=== PATIENT | male | born 1935 | race Caucasian/White ===

== ENCOUNTER 2020-10-24 12:39 | Inpatient (IN) | payer OTHER ==
[~2020-10-24] VITALS: Ht 180.3 cm; Wt 73.2 kg
--- NOTE | ~2020-10-24 | CON ---
[address] [address] CONSULTATION Name: KIMBERLI HENDRICKS Room: [address] IN M.R.#: [id number] Admission: 10/24/20 Attend Phys: Arben Shelley Discharge: Date of : 33 Report #: [id number] THIS REPORT FOR: cc: Renetta Tomas Barbara J APNP ~ Ej Lindsay MD DATE OF SERVICE: 10/25/2020 REQUESTING PHYSICIAN: Harshad Raymundo DO REASON FOR CONSULTATION: Abnormal renal function. HISTORY OF PRESENT ILLNESS: The patient is a very pleasant 85-year-old gentleman with medical history significant for possible chronic kidney disease, hypertension, dyslipidemia, diabetes mellitus type 2, presents with syncopal episode. He was feeling weak and shaky for several days prior to admission, blood pressure was 100/68 on admission. Labs were reviewed. His creatinine was 1.8, I do not know a baseline. His hemoglobin 17.3, which is suggestive of volume depletion. COVID-19 was negative. Chest x-ray had some diffuse interstitial pulmonary infiltrate with left basilar consolidation. Unclear to me the reason for that. PHYSICAL EXAMINATION: GENERAL: He is awake, but somnolent. VITAL SIGNS: Blood pressure 127/90, heart rate 64, afebrile. HEENT: Pupils are round. NECK: Supple. LUNGS: Decreased air movements. CARDIOVASCULAR: Regular rate. ABDOMEN: Soft. ASSESSMENT AND PLAN: 1. Syncopal episode with low blood pressure can be volume depleted. 2. Most likely he has chronic kidney disease. 3. Changes in the lungs. I am not sure what is causing that. He is COVID negative, but certainly could be false negative, maybe was to repeat that. 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 So nothing to add right now. I will be on standby. We will check again on Wednesday. Discussed with Dr. Raymundo. By: 1205 [id number] Lindsay MD /SUREKHA
[~2020-10-24 12:39] MED LIST: ASPIR-LOW81 MG PO; CALCIUM CARBON600 MG PO; METFORMIN HCL500 MG PO; NORVASC10 MG PO; SIMVASTATIN40 MG PO; ZESTRIL20 MG PO
[2020-10-24 12:45] VITALS: BP 101/68
[2020-10-24 13:01] LABS: ABSOLUTE MONOCYTES 0.6 thou/uL (0.0-1.2); ABSOLUTE NEUTROPHILS 4.2 thou/uL (1.6-8.1); BASOPHILS 0.4 %; EOSINOPHILS 0.3 %; HEMATOCRIT 52.9 % (42.0-52.0); HEMOGLOBIN 17.3 gm/dL (14.0-18.0); LYMPHOCYTES 17.3 %; MCH 31.8 pg (26.0-34.0); MCHC 32.8 g/dL (28.0-37.0); MCV 97.1 fL (80.0-100.0); MONOCYTES 10.4 %; MPV 9.1 fl. (7.2-11.1); NUCLEATED RBCS 0 /100WBC; PLATELET COUNT* 146 thou/uL (150-400); POLYS 71.6 %; RBC 5.45 mil/uL (4.50-6.00); RDW-CV 16.1 % (10.5-14.5); WBC 5.8 thou/uL (4.0-11.0)
[2020-10-24 13:17] LABS: CREATININE 1.8 mg/dL (0.6-1.3); POTASSIUM 4.4 mmol/L (3.5-5.1)
[2020-10-24 13:22] LABS: ALBUMIN 3.3 g/dL (3.4-5.0); TOTAL BILIRUBIN 2.5 mg/dL (<0.1-1.0); TOTAL PROTEIN 6.8 g/dL (6.4-8.2)
[2020-10-24 13:26] LABS: PLATELET ESTIMATE DECREASED
[2020-10-24 13:27] LABS: GIANT PLATELETS OCCASIONAL; LARGE PLATELETS FEW
[2020-10-24 13:28] LABS: TARGET CELLS 1+
[2020-10-24 16:06] VITALS: BP 109/81
--- NOTE | 2020-10-24 16:29 | EKG ---
[place] [address] ELECTROCARDIOGRAM REPORT Name: AMELIA HENDRICKSALD Rashard Room: [place] [address] ADM IN R.#: [id number] Admission: 10/24/20 Attend Phys: Harshad Raymundo Discharge: Date of : 33 Date of Service: 10/24/20 1248 Report #: [id number] THIS REPORT FOR: //name// [facility] ED Test Date: 2020-10-24 Test Time: 12:48:05 Pat Name: KIMBERLI HENDRICKS Department: Room: [facility] Gender: M Director Of In Service Education: SAVANNAH : 1935 Requested By: oJse Menjivar Order Number: [id number] MD: Eliezer Marvin Measurements Intervals [place] Rate: 80 P: 41 IL: 177 QRS: 161 QRSD: 157 T: -15 QT: 440 QTc: 508 Interpretive Statements Sinus rhythm Probable left atrial enlargement Nonspecific intraventricular conduction delay Anterolateral infarct, recent No previous ECG available for comparison Electronically Signed On 10-24-2020 16:28:57 HEARING [employer]ID [employer]TER by Eliezer Marvin [email or web address] <ELECTRONICALLY SIGNED> By: Eliezer Marvin MD, FACC 10/24/20 1628 1248 1248 Eliezer Marvin MD, FACC /EPI
[2020-10-24 17:08] VITALS: BP 111/80
[2020-10-24 21:09] VITALS: BP 127/82
[2020-10-24 23:49] VITALS: BP 114/86
[2020-10-25 04:00] VITALS: BP 106/75
[2020-10-25 08:00] VITALS: BP 127/92
[2020-10-25 12:51] VITALS: BP 123/93
[2020-10-25 16:44] VITALS: BP 125/62
[2020-10-25 20:30] VITALS: BP 86/65
[2020-10-25 23:54] VITALS: BP 97/71
[2020-10-26 03:55] LABS: ALBUMIN 2.9 g/dL (3.4-5.0); CALCIUM 8.7 mg/dL (8.5-10.1); CREATININE 1.7 mg/dL (0.6-1.3); POTASSIUM 4.9 mmol/L (3.5-5.1); TOTAL BILIRUBIN 2.2 mg/dL (<0.1-1.0); TOTAL PROTEIN 6.1 g/dL (6.4-8.2)
[2020-10-26 03:57] LABS: ABSOLUTE EOSINOPHILS 0.1 thou/uL (0.0-0.7); ABSOLUTE MONOCYTES 0.7 thou/uL (0.0-1.2); ABSOLUTE NEUTROPHILS 3.1 thou/uL (1.6-8.1); BASOPHILS 0.4 %; HEMATOCRIT 50.2 % (42.0-52.0); HEMOGLOBIN 16.4 gm/dL (14.0-18.0); LYMPHOCYTES 33.7 %; MCH 31.2 pg (26.0-34.0); MCHC 32.7 g/dL (28.0-37.0); MCV 95.4 fL (80.0-100.0); MONOCYTES 12.1 %; MPV 9.3 fl. (7.2-11.1); NUCLEATED RBCS 0 /100WBC; POLYS 52.8 %; RBC 5.27 mil/uL (4.50-6.00); RDW-CV 15.5 % (10.5-14.5); WBC 5.8 thou/uL (4.0-11.0)
[2020-10-26 04:00] VITALS: BP 115/85
[2020-10-26 05:48] LABS: PLATELET ESTIMATE DECREASED
[2020-10-26 05:49] LABS: LARGE PLATELETS OCCASIONAL
[2020-10-26 05:50] LABS: ANISOCYTOSIS 1+
[2020-10-26 05:51] LABS: PLATELET COUNT* 133 thou/uL (150-400)
[2020-10-26] MEDS ORDERED: ASPIRIN325 PO (07:36)
[2020-10-26 08:00] VITALS: BP 103/82
[2020-10-26 12:39] VITALS: BP 106/74
[2020-10-26 16:15] VITALS: BP 109/36
[2020-10-26 20:00] VITALS: BP 101/76
[2020-10-27 00:36] VITALS: BP 93/68
[2020-10-27 04:44] VITALS: BP 121/83
[2020-10-27 08:00] VITALS: BP 132/97
[2020-10-27 12:46] VITALS: BP 116/59
[2020-10-27 16:32] VITALS: BP 98/66
[2020-10-27 20:30] VITALS: BP 99/74
[2020-10-28 00:19] VITALS: BP 114/84
[2020-10-28 04:33] VITALS: BP 116/83
[2020-10-28 05:27] LABS: CREATININE 1.8 mg/dL (0.6-1.3); POTASSIUM 4.5 mmol/L (3.5-5.1)
[2020-10-28 08:00] VITALS: BP 98/73
--- NOTE | 2020-10-28 08:42 | CON ---
[facility] [address] [place] [address] CONSULTATION Name: KIMBERLI HENDRICKS Room: [address] IN M.R.#: [id number] Admission: 10/24/20 Attend Phys: Arben Shelley Discharge: Date of : 33 Report #: [id number] THIS REPORT FOR: cc: Renetta Tomas Barbara J APNP ~ Eliezer Marvin MD [facility] INDICATION: Elevated troponin and syncope. HISTORY OF PRESENT ILLNESS: The patient is an 85-year-old gentleman who is a fairly poor historian. He was found down at his apartment complex and was apparently out for several minutes after passing out. He was resuscitated by EMS and brought to the hospital for further evaluation. The patient does not recall a significant amount of symptoms prior to passing out. He had a similar episode back in May. At that time, he was hospitalized and went to rehabilitation for a month. There is no documented history of coronary artery disease. The patient does have a dual-chamber pacemaker in place. Interrogation today shows no arrhythmias and normal functioning of his pacemaker. The patient's troponin is mildly elevated. Chest x-ray suggests infiltrate versus edema. His NT-proBNP is elevated consistent with heart failure. He does have dyspnea on exertion that has been progressive for the last 3 days. He has lower extremity edema. He denies shortness of breath at rest. He is not having any chest pain. He is without other cardiac complaint at this time. PAST MEDICAL HISTORY: 1. Hypertension. 2. Dyslipidemia. 3. Type 2 diabetes mellitus. 4. Status post pacemaker placement with generator change in 2017 [employer]. 5. Tonsillectomy. 6. Hernia surgery. 7. Traumatic amputation of middle fingers. HOME MEDICATIONS: Lisinopril, amlodipine, simvastatin, and metformin. ALLERGIES: None documented. SOCIAL HISTORY: The patient does not smoke. He does not drink alcohol. FAMILY HISTORY: Noncontributory. PHYSICAL EXAMINATION: VITAL SIGNS: Blood pressure 123/93, pulse is 71 and regular. GENERAL: This is an elderly gentleman who does not appear to be in distress. HEENT: Head is normocephalic, atraumatic. [place] [address] CONSULTATION Name: KIMBERLI HENDRICKS Room: [address] IN [facility]#: [id number] Admission: 10/24/20 Attend Phys: Arben Shelley Discharge: Date of : 33 Report #: [id number] membranes moist. NECK: Shows no jugular venous distention. I do not appreciate bruit. CHEST: Reveals diminished breath sounds with coarse breath sounds over the mid lung redding. I do not appreciate wheezes or rales. CARDIOVASCULAR: Reveals a regular rhythm with a very soft 1/6 systolic ejection murmur. I do not appreciate gallop. ABDOMEN: Reveals normal bowel sounds. The abdomen is soft, nontender. EXTREMITIES: Shows 1+ edema to the mid tibias bilaterally. SKIN: Dry. RADIOLOGICAL DATA: A 12-lead EKG shows AV sequential pacing. LABORATORY DATA: Reviewed. Sodium 139, potassium 4.4, chloride 106, bicarbonate 25, BUN 37, creatinine 1.8, serum glucose 112. Troponins are 0.11 0.17, 0.37 and 0.29 sequentially. NT-proBNP is 14,261. Chest x-ray shows diffuse interstitial pulmonary infiltrates, which could possibly be edema. Moderate sized left effusion. IMPRESSION AND RECOMMENDATIONS: 1. Elevated troponin, likely due to cardiac strain. The patient is not having symptoms to suggest acute coronary syndrome. No specific treatment at this time. 2. Acute on chronic heart failure. Echocardiogram has been ordered and is pending. We will give bolus of IV Lasix today and follow labs in a.m. 3. Hypertension. Blood pressure low normal presently. 4. History of dyslipidemia. Continue atorvastatin at current dose. 5. Diabetes per hospitalist. <ELECTRONICALLY SIGNED> By: Eliezer Marvin MD, FACC 10/28/20 0842 1319 [id number] Marvin MD, FACC /nt
[2020-10-28 12:00] VITALS: BP 97/73
[2020-10-28 16:00] VITALS: BP 100/69
--- NOTE | 2020-10-28 16:20 | 2DMMODE ---
[place] [address] 2 D/M-MODE ECHOCARDIOGRAM Name: RUTHIEKIMBERLI Rashard Room: [address] IN [facility]#: [id number] Admission: 10/24/20 Attend Phys: Harshad Raymundo Discharge: Date of : 33 Date of Service: 10/28/20 1620 Report #: [id number] THIS REPORT FOR: cc: Renetta Tomas Barbara J APNP Liston, Michael J. MD [facility] ~ APPROVED REPORT Study performed: 10/28/2020 14:19:44 EXAM: Comprehensive 2D, Doppler, and color-flow Echocardiogram Patient Location: In-Patient Room #: [facility] Status: routine BSA: 1.96 HR: 71 bpm BP: 116/83 mmHg Rhythm: NSR Other Information Study Quality: Good Indications Murmur Syncope Elevated Troponin 2D Dimensions IVSd: 11.58 (7-11mm) LVOT Diam: 22.23 (18-24mm) LVDd: 27.91 mm PWd: 9.20 (7-11mm) Ascending Ao: 35.72 (22-36mm) LVDs: 21.34 (25-40mm) Aortic Root: 38.67 mm Volumes Left Atrial Volume (Systole) LA ESV Index: 12.00 mL/m2 Aortic Valve AoV Peak Quincy.: 0.97 m/s AO Peak Gr.: 3.76 mmHg LVOT Max P.10 mmHg AO Mean Gr.: 2.34 mmHg LVOT Mean P.68 mmHg LVOT Max V: 0.53 m/s AO V2 VTI: 14.37 cm LVOT Mean V: 0.40 m/[place] [address] 2 D/M-MODE ECHOCARDIOGRAM Name: KIMBERLI HENDRICKS Room: [address] IN .R.#: [id number] Admission: 10/24/20 Attend Phys: Harshad Raymundo Discharge: Date of : 33 Date of Service: 10/28/20 1620 Report #: [id number] ROBERTA (VTI): 2.26 cm2 LVOT V1 VTI: 8.37 cm Mitral Valve E/A Ratio: 0.55 MV Decel. Time: 215.05 ms MV E Max Quincy.: 0.26 m/s MV PHT: 62.37 ms MVA (PHT): 3.53 cm2 TDI E/Lateral E': 5.20 E/Medial E': 4.33 Medial E' Quincy.: 0.06 m/s Lateral E' Quincy.: 0.05 m/s Pulmonary Valve PV Peak Quincy.: 0.78 m/s PV Peak Gr.: 2.45 mmHg Tricuspid Valve RAP Estimate: 15.00 mmHg TR Peak Gr.: 54.26 mmHg RVSP: 69.00 mmHg PA Pressure: 69.00 mmHg Left Ventricle The left ventricle is normal size. There is left ventricular systolic dysynergy consistent with paced rhythm. There is normal left ventricular wall thickness. Left ventricular systolic function is normal. LVEF is 50-55%. Grade I - abnormal relaxation pattern. Right Ventricle Right ventricle is severely dilated. Right ventricle is moderately hypokinetic. Pacemaker lead is present in the right ventricle. Atria The left atrium size is normal. Right atrium is severely dilated. Aortic Valve Mild aortic valve sclerosis. Trace aortic regurgitation. There is no aortic valvular stenosis. Mitral Valve The mitral valve is normal in structure. Trace mitral regurgitation. No evidence of mitral valve stenosis. Tricuspid Valve The tricuspid valve is normal in structure[place] [address] 2 D/M-MODE ECHOCARDIOGRAM Name: KIMBERLI HENDRICKS Room: [address] IN [facility]#: [id number] Admission: 10/24/20 Attend Phys: Harshad Raymundo Discharge: Date of : 33 Date of Service: 10/28/20 1620 Report #: [id number] regurgitation. Severe pulmonary hypertension. The RVSP is estimated to be75-80 mmHg. Pulmonic Valve The pulmonary valve is normal in structure. Mild pulmonic regurgitation. Great Vessels The aortic root is normal in size. IVC is dilated and collapses <50% with inspiration. Pericardium There is no pericardial effusion. <Conclusion> The left ventricle is normal size. There is normal left ventricular wall thickness. Left ventricular systolic function is normal. LVEF is 50-55%. Grade I - abnormal relaxation pattern. There is left ventricular systolic dysynergy consistent with paced rhythm. Right ventricle is severely dilated. Right ventricle is moderately hypokinetic. Right atrium is severely dilated. Mild aortic valve sclerosis. Trace mitral regurgitation. Mild tricuspid regurgitation. Severe pulmonary hypertension. The RVSP is estimated to be75-80 mmHg. IVC is dilated and collapses <50% with inspiration. <ELECTRONICALLY SIGNED> By: Eliezer Marvin MD, FACC 10/28/20 162 19 19 Eliezer Marvin MD, FACC /INF
[2020-10-28 20:00] VITALS: BP 91/67
[2020-10-29] VITALS: BP 103/72
[2020-10-29 04:00] VITALS: BP 102/80
[2020-10-29 06:04] LABS: HEMATOCRIT 53.7 % (42.0-52.0); HEMOGLOBIN 17.8 gm/dL (14.0-18.0); MCH 31.5 pg (26.0-34.0); MCV 95.3 fL (80.0-100.0); MPV 9.3 fl. (7.2-11.1); RBC 5.64 mil/uL (4.50-6.00); RDW-CV 15.5 % (10.5-14.5)
[2020-10-29 06:15] LABS: CALCIUM 8.9 mg/dL (8.5-10.1); CREATININE 1.8 mg/dL (0.6-1.3); POTASSIUM 4.1 mmol/L (3.5-5.1)
[2020-10-29 08:00] VITALS: BP 128/91
[2020-10-29 12:00] VITALS: BP 132/89
[2020-10-29 16:00] VITALS: BP 107/74
[2020-10-29 22:30] VITALS: BP 99/65
[2020-10-30] VITALS (7 sets, daily range): BP systolic 83–130; BP diastolic 56–92
[2020-10-30 03:56] LABS: HEMATOCRIT 56.4 % (42.0-52.0); HEMOGLOBIN 18.4 gm/dL (14.0-18.0); MCH 31.4 pg (26.0-34.0); MCHC 32.7 g/dL (28.0-37.0); MCV 96.1 fL (80.0-100.0); MPV 9.8 fl. (7.2-11.1); RBC 5.87 mil/uL (4.50-6.00); RDW-CV 15.7 % (10.5-14.5); WBC 5.4 thou/uL (4.0-11.0)
[2020-10-30 05:44] LABS: CALCIUM 8.4 mg/dL (8.5-10.1); CREATININE 1.6 mg/dL (0.6-1.3)
[2020-10-31] VITALS: BP 106/72
[2020-10-31 04:00] VITALS: BP 90/56
[2020-10-31 04:37] LABS: CALCIUM 8.2 mg/dL (8.5-10.1); CREATININE 1.4 mg/dL (0.6-1.3); POTASSIUM 4.1 mmol/L (3.5-5.1)
[2020-10-31 08:00] VITALS: BP 92/67
[2020-10-31 11:50] VITALS: BP 80/55
[2020-10-31 20:00] VITALS: BP 88/60
[2020-10-31 23:39] VITALS: BP 89/63
[2020-11-01 04:59] VITALS: BP 93/66
[2020-11-01 12:00] VITALS: BP 101/76
[2020-11-01 20:00] VITALS: BP 83/58
[2020-11-02] VITALS: BP 87/63
[2020-11-02 04:00] VITALS: BP 96/71
[2020-11-02 12:00] VITALS: BP 88/55
[2020-11-02 20:00] VITALS: BP 108/79
[2020-11-03 00:34] VITALS: BP 111/80
[2020-11-03 04:28] VITALS: BP 114/78
[2020-11-03 04:52] LABS: HEMATOCRIT 53.4 % (42.0-52.0); HEMOGLOBIN 17.4 gm/dL (14.0-18.0); MCH 31.3 pg (26.0-34.0); MCHC 32.5 g/dL (28.0-37.0); MCV 96.2 fL (80.0-100.0); MPV 9.8 fl. (7.2-11.1); RBC 5.55 mil/uL (4.50-6.00); RDW-CV 15.5 % (10.5-14.5); WBC 2.7 thou/uL (4.0-11.0)
[2020-11-03 05:20] LABS: ALBUMIN 2.4 g/dL (3.4-5.0); CALCIUM 8.1 mg/dL (8.5-10.1); CREATININE 1.5 mg/dL (0.6-1.3); POTASSIUM 4.1 mmol/L (3.5-5.1); TOTAL PROTEIN 5.7 g/dL (6.4-8.2)
[2020-11-03 08:00] VITALS: BP 107/78
[2020-11-03 12:00] VITALS: BP 100/71
[2020-11-03 20:30] VITALS: BP 90/61
[2020-11-04] VITALS: BP 86/61
[2020-11-04 04:45] VITALS: BP 83/57
[2020-11-04 04:58] LABS: HEMATOCRIT 54.5 % (42.0-52.0); HEMOGLOBIN 18.1 gm/dL (14.0-18.0); MCH 31.7 pg (26.0-34.0); MCHC 33.3 g/dL (28.0-37.0); MCV 95.1 fL (80.0-100.0); MPV 10.3 fl. (7.2-11.1); RBC 5.73 mil/uL (4.50-6.00); RDW-CV 15.4 % (10.5-14.5); WBC 6.8 thou/uL (4.0-11.0)
[2020-11-04 05:19] LABS: ALBUMIN 2.3 g/dL (3.4-5.0); CALCIUM 8.2 mg/dL (8.5-10.1); CREATININE 1.3 mg/dL (0.6-1.3); MAGNESIUM 2.4 mg/dL (1.8-2.4); TOTAL BILIRUBIN 0.8 mg/dL (<0.1-1.0); TOTAL PROTEIN 5.4 g/dL (6.4-8.2)
[2020-11-04 08:00] VITALS: BP 92/68
[2020-11-04 10:25] LABS: BE 3.3 mmol/L (-2 to +3); PCO2 42.5 mmHg (35.0-45.0); pH 7.437 (7.340-7.450)
[2020-11-04 10:27] LABS: PO2 54.4 mmHg (75.0-100.0)
[2020-11-04 12:00] VITALS: BP 88/53
[2020-11-04 16:00] VITALS: BP 96/67
[2020-11-04 17:35] VITALS: BP 97/67
[2020-11-05 00:39] VITALS: BP 94/68
[2020-11-05 03:48] VITALS: BP 110/69; BP 90/67
[2020-11-05 05:30] LABS: HEMATOCRIT 57.6 % (42.0-52.0); HEMOGLOBIN 18.9 gm/dL (14.0-18.0); MCHC 32.7 g/dL (28.0-37.0); MCV 94.8 fL (80.0-100.0); MPV 10.6 fl. (7.2-11.1); RBC 6.08 mil/uL (4.50-6.00); RDW-CV 15.4 % (10.5-14.5); WBC 7.2 thou/uL (4.0-11.0)
[2020-11-05 05:48] LABS: ALBUMIN 2.6 g/dL (3.4-5.0); CALCIUM 8.5 mg/dL (8.5-10.1); CREATININE 1.7 mg/dL (0.6-1.3); MAGNESIUM 2.3 mg/dL (1.8-2.4); POTASSIUM 4.6 mmol/L (3.5-5.1); TOTAL PROTEIN 5.9 g/dL (6.4-8.2)
[2020-11-05 05:55] VITALS: BP 90/67
[2020-11-05 12:24] VITALS: BP 124/75
[2020-11-05 15:39] LABS: APTT 37.3 Seconds (25.0-31.3); INR 1.2; PROTIME 12.5 Seconds (9.20-11.50)
[2020-11-05 17:25] VITALS: BP 97/63; BP 99/71
--- NOTE | 2020-11-05 19:46 | CON ---
[address] [address] CONSULTATION Name: KIMBERLI HENDRICKS Room: [address] IN M.R.#: [id number] Admission: 10/24/20 Attend Phys: Arben Shelley Discharge: Date of : 34 Report #: [id number] THIS REPORT FOR: cc: Renetta Tomas Barbara J APNP ~ Celso Ulloa MD DATE OF SERVICE: 11/04/2020 REQUESTING PHYSICIAN: Consult has been requested by Dr. Pyle. INDICATION FOR CONSULTATION: Acute hypoxemic respiratory failure. HISTORY OF PRESENT ILLNESS: This is an 85-year-old gentleman with past medical history as mentioned below. We do not have previous records available. The patient does use oxygen at home. It appears likely to me that he does have COPD, although I do not see this documented on the records. The patient is now admitted towards the end of September. Presentation was with a syncopal episode. The patient since then has also had an elevation in creatinine and he has had shortness of breath as well and was seen by the Nephrology service earlier. The patient's renal function has now improved; however, his respiratory status has been worsening. Initial COVID screen was negative. The patient did have a repeat COVID test performed a couple of days ago, which did come back positive. The patient has become progressively more hypoxemic. Currently, he is on a BiPAP of 16/8 with 100% FiO2 and O2 saturation is in the low 90s. The patient's blood pressure is maintained; however, is on the lower side. At this time, he does not have significant swelling of lower extremities. He is however is described as having swelling of lower extremities on initial presentation. REVIEW OF SYSTEMS: The patient's review of systems as obtained from the patient is negative for 12 points except as mentioned above; however, the patient is on BiPAP and is short of breath and he has limited ability to answer questions adequately. PAST MEDICAL HISTORY: Hypertension, hyperlipidemia, diabetes, status post pacemaker placement, tonsillectomy, hernia surgery and traumatic amputation of middle fingers. The patient's current creatinine is 1.3, I do not have a previous comparison available. It is possible that he has mild renal insufficiency shelter as well. There is a recent echocardiogram, which shows a left ventricular ejection fraction of 50-55% with very severe pulmonary hypertension, the pulmonary artery systolic of 75-80. SOCIAL HISTORY: He has an extensive history of smoking more than [place] [address] CONSULTATION Name: KIMBERLI HENDRICKS Room: [address] IN [facility]#: [id number] Admission: 10/24/20 Attend Phys: Arben Shelley Discharge: Date of : 34 Report #: [id number] for at least 2 decades, he is described as having now discontinued, I am not able to quantify exactly at this time. Occasional alcohol use. No known history of illegal drug use. CURRENT MEDICATIONS: List in [facility], reviewed. HOME MEDICATIONS: List also in [facility], reviewed. FAMILY HISTORY: There is no pertinent family history noted at this time. PHYSICAL EXAMINATION: GENERAL: The patient appeared to have significant shortness of breath at rest. VITAL SIGNS: He was on BiPAP of 15/8. He was saturating 93-94%, respiratory rate was 24, blood pressure 97/67 and he is afebrile with a temperature of 36.7. HEENT: Head is normocephalic and atraumatic. There is a BiPAP mask in place. NECK: Does show some prominent veins, likely the patient has raised JVP. There is no asymmetry, mass or lymph nodes. CHEST: Symmetrical expansion on inspection and palpation. On auscultation, breath sounds are bilaterally equal, decreased, expirations are prolonged. I do hear scattered expiratory wheezes as well. HEART: Regular. There is no murmur. ABDOMEN: Soft and nontender. EXTREMITIES: Lower extremities show minimal edema only. There is no calf tenderness. SKIN: Dry and intact. NEUROLOGICAL: Moves all extremities bilaterally equally and spontaneously with no focal deficit identified. LABORATORY DATA: The patient's CTA chest performed on the 4th of this month is reviewed. There are pleural effusions consistent with fluid overload. There is a left lower lobe infiltrate. There are smaller infiltrates elsewhere as well. The patient's lab work including arterial blood gases in [facility] reviewed. ASSESSMENT AND PLAN: 1. Acute hypoxemic respiratory failure. Information regarding previous use of oxygen is limited; however, it appears to me that the patient is on oxygen at home as well. We will ask the patient when his shortness of breath is better. Meanwhile, the patient right now needs to be on the BiPAP. If his respiratory status improves, then he could be taken off and placed on a heated high-flow while awake. Keep him on BiPAP while asleep. For now ,continued current settings. I feel that we should have a more secure access in the form of a PICC line and I requested the same as well. 2. COVID-19. See discussion regarding steroids as below. The patient is on remdesivir and I agree with the same. He is also ordered one unit of [facility] [address] [place] [address] CONSULTATION Name: KIMBERLI HENDRICKS Room: [address] IN .#: [id number] Admission: 10/24/20 Attend Phys: Arben Shelley Discharge: Date of : 33 Report #: [id number] convalescent plasma and I agree with the same as well. We will plan to give him another unit of convalescent plasma tomorrow. 3. Bronchospasm/suspected acute exacerbation of chronic obstructive pulmonary disease. The patient is actively bronchospastic. It appears likely to me that he has a previous history of chronic obstructive pulmonary disease, regardless at this time I feel that he needs a significantly higher dose of steroid and I went ahead and ordered the same. We will continue with nebulized bronchodilators as currently prescribed. 4. Pulmonary infiltrates/pneumonia. There is a significant sized infiltrate in the left lower lobe, which appears to be lobar on the CT of the chest performed on the . There are other infiltrates as well. I would treat with broad-spectrum antibiotics and the same are ordered. Cultures and serologies are also ordered. 5. Severe pulmonary hypertension, pulmonary artery systolic 75-80. I feel that the patient would potentially benefit from higher dose of Lovenox both because of severe pulmonary hypertension as well as COVID-19, even though he is high risk for anticoagulation due to low platelets. I did order a chest ultrasound to evaluate if a significant pleural effusion is present on the left side and therefore I did not increase the Lovenox dose today, I will be inclined to increase it tomorrow. 6. Pleural effusions as above. I ordered a chest ultrasound; however, he is high risk for performing thoracentesis, so I only intent to proceed with thoracentesis if a large pleural effusion is seen. 7. Acute renal failure. It is possible there is a component of chronic renal insufficiency as well. Follow creatinine. I feel that we should run him on the dry side though 20 of Lasix now since his blood pressure is on the lower side. I will plan to give him more Lasix if his creatinine and blood pressure hold. I did not order the midodrine because he has severe pulmonary hypertension. Potentially, albumin could be given if needed to maintain blood pressure. 8. Thrombocytopenia, etiology is not fully defined at this time. The patient has only recently been started on Lovenox, DVT needs to be ruled out. I did order venous Dopplers. There was no pulmonary emboli on the CTA chest as above. My inclination is to increase the dose of Lovenox tomorrow. If we do not, proceed with thoracentesis. The patient is critically ill at this time. Total time spent providing critical care to this patient today exceeds 41 minutes. <ELECTRONICALLY SIGNED> By: Celso Ulloa MD 11/05/201945 15 Akaela Ulloa MD /nt
[2020-11-05 20:15] VITALS: BP 90/61
[2020-11-06] VITALS (7 sets, daily range): BP systolic 84–108; BP diastolic 54–76
[2020-11-06 07:28] LABS: HEMATOCRIT 55.9 % (42.0-52.0); HEMOGLOBIN 18.4 gm/dL (14.0-18.0); MCH 31.1 pg (26.0-34.0); MCHC 32.9 g/dL (28.0-37.0); MCV 94.3 fL (80.0-100.0); MPV 10.8 fl. (7.2-11.1); NUCLEATED RBCS 0 /100WBC; PLATELET COUNT* 86 thou/uL (150-400); RBC 5.92 mil/uL (4.50-6.00); RDW-CV 15.1 % (10.5-14.5); WBC 10.3 thou/uL (4.0-11.0)
[2020-11-06 07:38] LABS: ALBUMIN 2.7 g/dL (3.4-5.0); CALCIUM 8.1 mg/dL (8.5-10.1); CREATININE 1.6 mg/dL (0.6-1.3); MAGNESIUM 2.1 mg/dL (1.8-2.4); PHOSPHORUS* 3.1 mg/dL (2.5-4.9); POTASSIUM 3.9 mmol/L (3.5-5.1); TOTAL BILIRUBIN 1.3 mg/dL (<0.1-1.0); TOTAL PROTEIN 5.9 g/dL (6.4-8.2)
[2020-11-06 08:43] LABS: ABSOLUTE EOSINOPHILS 0.1 thou/uL (0.0-0.7); ABSOLUTE LYMPHOCYTES 0.2 thou/uL (0.8-5.3); ABSOLUTE MONOCYTES 1.2 thou/uL (0.0-1.2); ABSOLUTE NEUTROPHILS 8.8 thou/uL (1.6-8.1); ANISOCYTOSIS 1+; LARGE PLATELETS OCCASIONAL; PLATELET ESTIMATE DECREASED
[2020-11-06 08:44] LABS: POIKILOCYTOSIS 1+
[2020-11-07] VITALS (307 sets, daily range): BP systolic 27–7271; BP diastolic 20–127
[2020-11-07 04:53] LABS: ABSOLUTE LYMPHOCYTES 0.4 thou/uL (0.8-5.3); ABSOLUTE MONOCYTES 1.1 thou/uL (0.0-1.2); ABSOLUTE NEUTROPHILS 9.6 thou/uL (1.6-8.1); BASOPHILS 0.1 %; HEMATOCRIT 55.2 % (42.0-52.0); LYMPHOCYTES 3.4 %; MCH 30.7 pg (26.0-34.0); MCHC 32.5 g/dL (28.0-37.0); MCV 94.5 fL (80.0-100.0); MONOCYTES 9.8 %; MPV 10.5 fl. (7.2-11.1); NUCLEATED RBCS 0 /100WBC; PLATELET COUNT* 79 thou/uL (150-400); POLYS 86.7 %; RBC 5.84 mil/uL (4.50-6.00); WBC 11.1 thou/uL (4.0-11.0)
[2020-11-07 05:14] LABS: ALBUMIN 2.8 g/dL (3.4-5.0); CALCIUM 8.5 mg/dL (8.5-10.1); CREATININE 1.5 mg/dL (0.6-1.3); POTASSIUM 3.4 mmol/L (3.5-5.1); TOTAL BILIRUBIN 1.6 mg/dL (<0.1-1.0); TOTAL PROTEIN 5.9 g/dL (6.4-8.2)
[2020-11-07 14:51] LABS: BE 5.4 mmol/L (-2 to +3); PCO2 36.6 mmHg (35.0-45.0); pH 7.507 (7.340-7.450)
[2020-11-07 14:53] LABS: PO2 53.2 mmHg (75.0-100.0)
[2020-11-07 17:26] LABS: PO2 80.3 mmHg (75.0-100.0); pH 7.353 (7.340-7.450)
[2020-11-07 17:30] LABS: PCO2 54.3 mmHg (35.0-45.0)
[2020-11-07 17:44] LABS: CALCIUM 9.1 mg/dL (8.5-10.1); CREATININE 1.4 mg/dL (0.6-1.3); MAGNESIUM 2.3 mg/dL (1.8-2.4); POTASSIUM 3.8 mmol/L (3.5-5.1)
[2020-11-07 19:51] LABS: BE 1.7 mmol/L (-2 to +3); PO2 67.4 mmHg (75.0-100.0); pH 7.359 (7.340-7.450)
[2020-11-07 19:54] LABS: PCO2 52.1 mmHg (35.0-45.0)
[2020-11-07 23:06] LABS: MYCOPLASMA PNEUMONIA IgG 892 U/mL (0-99); MYCOPLASMA PNEUMONIA IgM <770 U/mL (0-769)
[2020-11-08 00:04] VITALS: BP 28/21
[2020-11-08 00:09] VITALS: BP 25/18
[2020-11-08 00:14] VITALS: BP 22/16
[2020-11-08 00:19] VITALS: BP 18/12
[2020-11-08 00:24] VITALS: BP 6/-10
== END 2020-11-08 02:56 | DRG 208 ==
LOC: M.ERS 12:39 → M.2W 13:50 → M.TBA-ER 13:50 → M.2W 16:30 → M.ORTHSURG 11-02 17:42 → M.ICU 11-07 15:45
PROVIDERS: Emergency Medicine Emergency Medical Services; Family Medicine; Internal Medicine; Internal Medicine Cardiovascular Disease; Internal Medicine Critical Care Medicine; ADMIT Internal Medicine; ATTEND Internal Medicine
DX: U07.1 COVID-19 (principal); I50.33 Acute on chronic diastolic (congestive) heart failure; J12.82 Pneumonia due to coronavirus disease 2019; I21.A1 Myocardial infarction type 2; J96.21 Acute and chronic respiratory failure with hypoxia; I13.0 Hypertensive heart and chronic kidney disease with heart failure and stage 1 through stage 4 chronic kidney disease, or unspecified chronic kidney disease; N17.9 Acute kidney failure, unspecified; J44.1 Chronic obstructive pulmonary disease with (acute) exacerbation; J44.0 Chronic obstructive pulmonary disease with (acute) lower respiratory infection; I27.20 Pulmonary hypertension, unspecified; D69.6 Thrombocytopenia, unspecified; I95.9 Hypotension, unspecified; I87.8 Other specified disorders of veins; I25.10 Atherosclerotic heart disease of native coronary artery without angina pectoris; E11.22 Type 2 diabetes mellitus with diabetic chronic kidney disease; N18.30 Chronic kidney disease, stage 3 unspecified; E78.5 Hyperlipidemia, unspecified; Z98.42 Cataract extraction status, left eye; Z98.41 Cataract extraction status, right eye; Z95.0 Presence of cardiac pacemaker; Z89.029 Acquired absence of unspecified finger(s); Z87.891 Personal history of nicotine dependence; Z79.82 Long term (current) use of aspirin; Z79.899 Other long term (current) drug therapy; Z23 Encounter for immunization